=== PATIENT | female | born 1990 | race Caucasian/White ===

== ENCOUNTER 2020-08-04 21:29 | Emergency (ER) | payer OTHER, SELFPAY | END 2020-08-05 | disposition left against medical advice (07) | PROVIDERS: Emergency Provider Emergency Medicine | DX: F19.90 Other psychoactive substance use, unspecified, uncomplicated (principal) ==

== ENCOUNTER 2025-01-17 12:27 | Emergency (ER) | payer OTHER, SELFPAY ==
--- NOTE | ~2025-01-17 | CT_ITS ---
EXAMINATION: CT HEAD WITHOUT IV CONTRAST HISTORY: headache. TECHNIQUE: Unenhanced helical CT of the head was performed per standard departmental protocol. Coronal and sagittal reformats of the head were also evaluated. One or more of the following techniques was used for dose reduction: Automated exposure control, adjustment of the mA and/or kV according to patient size, use of iterative reconstruction technique. DLP: 600 mGy-cm COMPARISON: There are no prior studies available for comparison. FINDINGS: BRAIN: The brain parenchyma is unremarkable. There is normal gagnon/white differentiation. The ventricular system is normal in size and configuration. There is no mass effect or midline shift. No intra- or extra-axial fluid collections are identified. SINUSES: The visualized paranasal sinuses are clear. The mastoid air cells and middle ear cavities are well pneumatized. ORBITS: The visualized orbits are unremarkable. BONES/SOFT TISSUES: The extracranial soft tissues are unremarkable. The calvarium is intact. No suspicious lytic or sclerotic lesions. CT/CT head/brain wo IV con IMPRESSION: Unremarkable unenhanced head CT. Electronically signed by: Norberto Rogel MD 01/17/2025 01:26 PM EDT
--- NOTE | 2025-01-17 12:56 | ED.HA ---
HPI - Headache General Chief Complaint: Headache Stated Complaint: headaches Time Seen by Provider: 01/17/25 14:57 Source: patient and old records reviewed Mode of arrival: ambulatory Limitations: no limitations History of Present Illness ED Provider: JULIA CARRANZA Narrative: 34 yo female with no sig PMH not on thinners no fevers intermittent dull frontal headaches x 5 days that responds to excedrin. No trauma, no numbness, weakness. No vomiting. She denies any other symptoms. She notes it has been getting worse over the past 5 days. No vision changes. She is under more stress than usual. MD elicited complaint: headache Onset (ago): day(s) (5) Onset description: gradually Location: right, left, frontal and temporal Severity: moderate Quality & Timing: aching Exacerbating factors: rest Relieving factors: nothing Context: occurred at rest Associated symptoms: none Treatments prior to arrival: migraine medication Related Data Previous Rx's ?Medication ?Instructions ?Recorded lxtlqwhrqg-plxsqzpxbffwl-ubujbhth 1 tab PO Q6H PRN pain #10 tabs 01/17/25 50 mg-325 mg-40 mg tablet cyclobenzaprine 10 mg tablet 10 mg PO TID PRN muscle spasm #20 01/17/25 tabs Allergies Allergy/AdvReac Type Severity Reaction Status Date / Time No Known Allergies (No Known Allergy Verified 01/17/25 12:57 Allergies*) Review of Systems Review of Systems: Constitutional : No Fever, No Chills, No Fatigue ENT/Mouth : No sore throat, No Rhinorrhea Eyes: No Eye Pain, No Swelling, No Redness Cardiovascular : No Chest Pain, No SOB, No Dyspnea on Exertion Respiratory : No Cough, No Sputum Gastrointestinal : No Nausea, No Vomiting, No Diarrhea, No abdominal Pain Genitourinary : No Dysuria, No Urinary Frequency, No Hematuria, Musculoskeletal : No joint pain, No Myalgias, No Joint Swelling Skin : No Skin Lesions, No rash Neuro : No Weakness, No Numbness, No Dizziness, positive Headache All other systems reviewed and are negative [facility] Past Medical History Attestation statement: The following information was validated with the patient. Source: old records reviewed Medical History No pertinent past medical history Social History Social History (Updated 01/17/25 @ 15:26 by Zoraida Gaviria DO) Patient Tobacco Use Status: Never used Tobacco Physical Exam Vital Signs: Vital Signs: Last Vital Signs Temp 97.1 F 01/17/25 15:07 Pulse 50 01/17/25 15:07 Resp 16 01/17/25 15:07 BP 116/56 L 01/17/25 15:07 Pulse Ox 100 01/17/25 15:07 O2 Del Method Room Air 01/17/25 15:07 BMI result Body Mass Index 31.8 Appearance: Alert. Oriented X3. No acute distress. Eyes: Pupils equal, round and reactive to light. ENT: Pharynx normal. Normal TMs Neck: Normal inspection. Neck supple. no meningeal signs CVS: Normal heart rate and rhythm. Pulses normal. Respiratory: No respiratory distress. Breath sounds normal. Abdomen: Soft and nontender. Skin: Skin warm and dry. Normal skin color. Normal skin turgor. Extremities: No lower extremity edema. No calf ttp Neuro: Oriented X 3. No motor deficit. No sensory deficit. CN2-12 intact Course Course Course Narrative: This is an RME: Additional HPI, ROS, PE not included below will be deferred to primary provider. RME assessment and note performed by: Elena Toro PA-C This is a 64-ayav-hof-female, with a hx of kidney stones, who presents to the ER with complaints of headaches x 4-5 days. Reports that the pain has been waking her up in the middle of the night. Reports that she has been sweating perfusely. Has been taking excedrin without relief. No hx of migraines. Reporting that the pain is in the front of her head. Reporting that she felt as though her eyes were dilated. No visual changes. Last took excedrin this morning. Plan: labs, CT head, futher ER eval needed Medical Decision Making Medical Decision Making MDM Narrative: 34 yo female with no PMH not on thinners here with c/o frontal headaches x 5 days worse at night but no fevers, neck pain, she is NIH 0 she is not toxic, plan to order CT scan to rule out space occupying lesion - she will be started on supportive medications and sent home with precautions to return if not better in 48 hours. Doubt stroke, meningitis. 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 External Record Review External record reviewed: Outpatient record Tests considered The following testing was considered but not selected: basic labs but no fevers to suggest infection Prescription Management I considered prescription management with: Pain Medication and Other Discharge Plan Discharge Clinical Impression: Tension headache Patient Disposition: Home, Self-Care Instructions: Tension Headache (ED) Additional Instructions: okay to take motrin with these medications avoid excedrin rest and stay hydrated return for fevers, worsening symptoms, confusion, numbness, weakness or any other concerns FINDINGS: BRAIN: The brain parenchyma is unremarkable. There is normal gagnon/white differentiation. The ventricular system is normal in size and configuration. There is no mass effect or midline shift. No intra- or extra-axial fluid collections are identified. SINUSES: The visualized paranasal sinuses are clear. The mastoid air cells and middle ear cavities are well pneumatized. ORBITS: The visualized orbits are unremarkable. BONES/SOFT TISSUES: The extracranial soft tissues are unremarkable. The calvarium is intact. No suspicious lytic or sclerotic lesions. CT/CT head/brain wo IV con IMPRESSION: Unremarkable unenhanced head CT Prescriptions: New cyclobenzaprine 10 mg tablet 10 mg PO TID PRN (Reason: muscle spasm) Qty: 20 0RF atrqsyscue-quvhzkzjustjo-ydnt 50-325-40 mg tablet 1 tab PO Q6H PRN (Reason: pain) Qty: 10 0RF Stand Alone Forms: Work/School Release Interventions: ED Discharge Assessment Last Done: 01/17/25 15:07 Discharge Date/Time: 01/17/25 15:08 Print Language: Azeri
[2025-01-17 12:57] VITALS: BP 116/56; PULSE 50; RESP 16; TEMP 36.2; O2SAT 100; BMI 31.8
--- OUTSIDE RECORDS SUMMARY | 2025-01-17 15:04 | XMS_ITS | Encounter Summary ---
Author Organization [facility] Address [address] [place] [address] Phone Care Team Providers Care Torch Straightener Name Role Phone Cristina Rodriguez MD Primary Care Provider [phone] Encounter Details Date Type Department Care Team (Late st Contact Info) Description 05/12/2017 Conversion Encounter [facility] [address] [place] [address] Social History Tobacco Use Types Packs/Day Years Used Date Smoking Tobacco: Never Assessed Comments Unknown Sex and Gender Information Value Date Recorded Sex Assigned at Not on file Legal Sex Female 4:27 PM EDT Gender Identity Not on file Sexual Orientation Not on file documented as of this encounter Plan of Treatment Not on file documented as of this encounter Visit Diagnoses Not on filedocumented in this encounter Care Teams Torch Straightener Relationship Specialty Start Date End Date Cristina Rodriguez MD [address] [place] [address] PCP - General 02/18/17 08/25/22 documented as of this encounter
--- OUTSIDE RECORDS SUMMARY | 2025-01-17 15:04 | XMS_ITS | Clinical Summary ---
Author Organization [address] [place] [address] Address [address] [place] [address] Phone Care Team Providers Care Architecture Department Chair Name Role Phone Eyad Salinas MD Primary Care Provider [phone] Allergies No known active allergies Medications hydrOXYzine HCL (ATARAX) 25 mg tablet Take 1 Tablet by mouth 3 times daily as needed for Anxiety for up to 360 days. Active Active Problems Problem Noted Date Diagnosed Date Anxiety 04/18/2024 COVID-19 08/28/2021 Immunizations Name Administration Dates Next Due Influenza trivalent, with pr eservative (Fluzone; Afluria) 6mo and older 08/08/2013 PPD Test 11/12/2016,08/08/2013 AI Exchange SARS-CoV-2 COVID-19, mRNA, LNP-S, preservative free 03/10/2021,02/17/2021 Tdap Tetanus diptheria acell ular pertussis (Boostrix; Adacel) 7yo and older 08/08/2013 Surgical History Surgery Date Site/Laterality Comments OTHER SURGICAL HISTORY 12/10/2015 Left PROCEDURE: ---- OTHER ----; COMMENT: removal renal calculi LITHOTRIPSY 07/16/2022 PROCEDURE: HISTORICAL LITHOTRIPSY Medical History Medical History Date Comments Kidney stone DX:Kidney stone; COMMENT: age 13 Covid-19 08/28/2021 DX:COVID-19 Family History Medical History Relation Name Comments Other: Other Brother kidney stone Asthma Father from covid Cirrhosis Mother Diabetes Paternal Grandfather Breast cancer Neg Hx Colon cancer Neg Hx Relation Name Status Comments Brother Daughter Alive healthy 8 yo Father Mother Paternal Grandfather Social History Tobacco Use Types Packs/Day Years Used Date Smoking Tobacco: Never Smokeless Tobacco: Never Alcohol Use Standard Drinks/Week Comments Not Currently 0 (1 standard drink = 0.6 oz pur e alcohol) Comments Unknown Sex and Gender Information Value Date Recorded Sex Assigned at Not on file Legal Sex Female 10:04 AM EST Gender Identity Not on file Sexual Orientation Not on file Obstetrics History Last Filed Vital Signs Vital Sign Reading Time Taken Comments Blood Pressure 123/82 08/02/2024 6:33 PM EST Pulse 94 08/02/2024 6:33 PM EST Temperature 36.6 C (97.9 F) 08/02/2024 6:33 PM EST Respiratory Rate 16 08/02/2024 6:33 PM EST Oxygen Saturation 99% 08/02/2024 6:33 PM EST Inhaled Oxygen Concentration - - Weight 79.4 kg (175 lb) 08/02/2024 6:33 PM EST Height 160 cm (5' 2.99 ) 08/02/2024 6:33 PM EST Body Mass Index 31.01 08/02/2024 6:33 PM EST Plan of Treatment Upcoming Encounters Date Type Department Care Team (Late st Contact Info) Description 02/22/2025 9:00 AM EDT [facility] [address] [place] [address] Bright Ramirez PA [address] [place] [address] Health Maintenance Due Date Last Done Comments Cervical Cancer Screening: Pap Smear 05/08/2015 05/08/2012 HPV Vaccines (3 - 3-dose SCDM series) 10/24/2017 08/01/2017, 07/15/2016 Social Influencers of Health Screening 06/20/2022 COVID-19 Vaccine ( season) 2024 04/22/2022, 03/10/2021, 02/17/2021 Depression Screening 02/20/2025 02/21/2024 Influenza Vaccine (#1) 2025 , 05/14/2022, 04/24/2018, Additional history exists DTaP,Tdap,and Td Vaccines (8 - Td or Tdap) 05/08/2028 05/08/2018, 03/18/2016, 08/08/2013, Additional history exists Cholesterol Screening (Lipid Panel) 02/20/2029 02/21/2024, 02/21/2024 HIB Vaccines Completed 09/08/1990 IPV Vaccines Completed 06/15/1995, 02/09, 05/11/1991, Additional history exists HIV Screening Completed 08/08/2013 Hepatitis C Screening Completed 08/08/2013 Hepatitis B Vaccines Completed 08/01/2017, 06/04/2003, 12/04/2002 MMR Vaccines Completed 08/01/2017, 05/12, 03/03/1995, Additional history exists Hepatitis A Vaccines Aged Out No long er eligible based on patient's age to complete this topic Meningococcal ACWY Vaccine Aged Out N o longer eligible based on patient's age to complete this topic Meningococcal B Vaccine Aged Out No l onger eligible based on patient's age to complete this topic Pneumococcal Vaccine: Pediatrics (0 to 5 Years) and At-Risk Patients (6 to 49 Years) Aged Out No longer eligible based on patient's age to complete this topic RSV Immunization Patients Under 20 months Aged Out No longer eligible based on patient's age to complete this topic Varicella Vaccines Aged Out No longer eligible based on patient's age to complete this topic Procedures Procedure Name Priority Date/Time Associated Diagnosis Comments EXTERNAL CT REPORT 12/13/2024 DEPRESSION SCREENING Routine 02/21/2024 LIPID PANEL Routine 02/21/2024 HEPATITIS C SCREENING Routine 08/08/2013 HIV SCREENING Routine 08/08/2013 PAP SMEAR Routine 05/08/2012 from Last 3 Months or Most Recently Relevant to Health Maintenance Results * External CT Report (12/13/2024) Anatomical Region Laterality Modality Computed Tomogra phy us Provider [facility] PROCEDURES Final Result * Depression Screening (02/21/2024) Pathologist [facility] Depression Screening Abstracted [facility] Provider HEALTH MAINTENANCE Final Result * (ABNORMAL) Lipid panel (02/21/2024) [facility] LDL/HDL Ratio 4 0 - 4 Triglycerides 172(A) 0 - 150 mg/dL Cholesterol 209(A) 0 - 200 mg/dL HDL 50 >=40 mg/dL LDL Cholesterol 125(A) 0 - 100 mg/dL Blood Venous blood specimen / Unknown [facility] Provider LAB BLOOD ORDERABLES Aspen l Result * HIV Screening (08/08/2013) [facility] HIV Screening Abstracted [facility] Provider HEALTH MAINTENANCE Final Result * Hepatitis C Screening (08/08/2013) [facility] Hepatitis C Screening Abstracted [facility] Provider HEALTH MAINTENANCE Final Result * Pap Smear (05/08/2012) [facility] Pap smear Normal, Abstracted [facility] Provider HEALTH MAINTENANCE Final Result from Last 3 Months or Most Recently Relevant to Health Maintenance Insurance [facility] [employer] Care Teams Architecture Department Chair Relationship Specialty Start Date End Date Eyad Sailnas MD [address] [place] [id number] PCP - General Internal Medicine 07/28/21
[2025-01-17 15:07] VITALS: BP 116/56; PULSE 50; RESP 16; TEMP 36.2; O2SAT 100
== END 2025-01-17 15:08 | disposition home or self-care (01) ==
PROVIDERS: Emergency Provider Emergency Medicine
DX: G44.209 Tension-type headache, unspecified, not intractable (principal)
CPT/HCPCS: 70450; 99282; 99284

== ENCOUNTER → 2025-01-17 13:02 | Outpatient (BNV) | payer OTHER, SELFPAY | PROVIDERS: Visit Provider Radiology Diagnostic Radiology | DX: R51.9 Headache, unspecified (principal) | CPT/HCPCS: 70450 ==